=== PATIENT | female | born 1950 | race Caucasian/White ===

== ENCOUNTER 2017-01-28 09:16 | Outpatient (CLI) | payer OTHER ==
[2017-01-28] MEDS ORDERED: IOPAMIDOL-300 100 ML VIAL IVP ONE (10:45)
[2017-01-28] MEDS ORDERED: IOPAMIDOL-300 50 ML VIAL PO ONE (10:45)
== END 2017-01-28 09:17 | disposition home or self-care (01) ==
DX: K76.89 Other specified diseases of liver (principal); K21.9 Gastro-esophageal reflux disease without esophagitis; R10.9 Unspecified abdominal pain; R19.4 Change in bowel habit
CPT/HCPCS: 74177; Q9967

== ENCOUNTER 2017-08-06 10:36 | Outpatient (CLI) | payer OTHER ==
--- NOTE | 2017-08-07 12:41 | Mammography Report ---
DIGITAL SCREENING MAMMOGRAM: 08/06/2017 CLINICAL INDICATION: A 66-year-old for screening. COMPARISON: 03/2014, 11/2007 TECHNIQUE: Routine CC and MLO projections were obtained of the breasts. FINDINGS: The breasts demonstrate scattered fibroglandular densities bilaterally. Coarse, typically benign calcifications are present. No suspicious masses, clustered microcalcifications, or regions of architectural distortion are identified. IMPRESSION: BENIGN FINDINGS. RECOMMENDATION: Routine annual screening unless otherwise clinically indicated. BIRADS CATEGORY 2 - BENIGN FINDINGS. STANDARD QUALIFYING STATEMENTS 1. This examination was reviewed with the aid of Computer-Aided Detection (CAD). 2. A negative or benign imaging report should not delay biopsy if clinically suspicious findings are present. Consider surgical consultation if warranted. More than 5% of cancers are not identified by i maging. 3. Dense breasts may obscure an underlying neoplasm. JOB #: [id number] EXT JOB #:[id number]
== END 2017-08-06 10:37 | disposition home or self-care (01) ==
LOC: DI.S 10:36
PROVIDERS: ATTEND Physician Assistant
DX: Z12.31 Encounter for screening mammogram for malignant neoplasm of breast (principal)
CPT/HCPCS: 77067

== ENCOUNTER 2017-12-29 12:55 | Outpatient (CLI) | payer OTHER ==
--- NOTE | 2017-12-29 18:55 | XRAY Report ---
TWO VIEW CHEST: 12/29/2017 CLINICAL INDICATION: Cough. FINDINGS: Frontal and lateral views of the chest demonstrate a normal cardiac silhouette. The lungs are clear. No effusion or pneumothorax is present. IMPRESSION: NORMAL CHEST. TD: 12/29/2017 18:53
== END 2017-12-29 12:56 | disposition home or self-care (01) ==
LOC: DI.S 12:55
PROVIDERS: ATTEND Nurse Practitioner Family
DX: R05 Cough (principal)
CPT/HCPCS: 71046

== ENCOUNTER 2019-07-12 14:03 | Outpatient (CLI) | payer OTHER ==
--- NOTE | 2019-07-13 09:29 | Mammography Report ---
Reason: SELF REFERRING GREG, Z12.31 Procedure Date: 07/12/2019 Accession Number: [id number] / [id number] Procedure: MGS - Screening Mammo Dig Bilat CPT Code: FULL RESULT: EXAM: Screening Mammo Dig Bilat DATE: 07/12/2019 2:21 PM CLINICAL HISTORY: Routine screening TECHNIQUE: (B) - Bilateral CC and MLO views were obtained. COMPARISON: 08/06/2017, 03/14/2014, 11/19/2007 PARENCHYMAL PATTERN: (A) - The breasts demonstrate scattered fibroglandular densities bilaterally. FINDINGS: No significant interval change. There are no suspicious masses, calcifications, or areas of distortion. IMPRESSION: Negative examination. BI-RADS category 1. RECOMMENDATION: (ANNUAL) - Recommend routine annual screening mammography. BI-RADS CATEGORY: (1) - Negative. STANDARD QUALIFYING STATEMENTS: 1. This examination was not reviewed with the aid of Computer-Aided Detection (CAD). 2. A negative or benign imaging report should not preclude biopsy if clinically suspicious findings are present. 3. Dense breasts may obscure an underlying neoplasm. 4. This examination was reviewed without the aid of 3D breast imaging (tomosynthesis).
== END 2019-07-12 14:04 | disposition home or self-care (01) ==
LOC: DI.S 14:03
PROVIDERS: ATTEND Physician Assistant
DX: Z12.31 Encounter for screening mammogram for malignant neoplasm of breast (principal)
CPT/HCPCS: 77067

== ENCOUNTER 2021-12-10 13:44 | Outpatient (CLI) | payer MEDICARE ==
--- NOTE | 2021-12-11 09:48 | XRAY Report ---
PROCEDURE: Hand 2 View BILAT INDICATIONS: BILAT HAND PAIN TECHNIQUE: 2 views of each hand(s) acquired. COMPARISON: X-ray right hand 3 view, 01/03/2015. FINDINGS: Bones: No fractures or dislocations. No suspicious bony lesions. There is a small corticated ossic le adjacent to the ulnar steroid. There are osteoarthritic changes bilaterally, moderate at the right fifth proximal interphalangeal joint, and mild at multiple interphalangeal joints bilaterally. Soft tissues: No suspicious soft tissue calcifications. IMPRESSION: Osteoarthritis bilaterally. Reviewed by: Mode Edwards MD on 12/11/2021 9:47 AM PST Approved by: Mode Edwards MD on 12/11/2021 9:47 AM PST Station ID: [id number]
== END 2021-12-10 13:45 | disposition home or self-care (01) ==
LOC: DI.S 13:44
PROVIDERS: ATTEND Nurse Practitioner Family
DX: M19.042 Primary osteoarthritis, left hand (principal); M19.041 Primary osteoarthritis, right hand

== ENCOUNTER 2021-12-10 13:44 | Outpatient (CLI) | payer MEDICARE ==
--- NOTE | 2021-12-11 07:27 | Mammography Report ---
BILATERAL DIGITAL SCREENING MAMMOGRAM 3D/2D: 12/10/2021 CLINICAL: Routine screening. Family history of breast cancer. Comparison is made to exams dated: 07/12/2019 mammogram, 08/06/2017 mammogram, and 03/14/2014 mammogram - [facility]. There are scattered fibroglandular elements in both breasts. No significant masses, calcifications, or other findings are seen in either breast. There has been no significant interval change. IMPRESSION: NEGATIVE There is no mammographic evidence of malignancy. A 1 year screening mammogram is recommended. This exam was interpreted at Station ID: [id number]. NOTE: For mammograms, a report in lay terms will be sent to the patient. Approximately 15% of breast malignancies will not be visualized mammographically. In the management of a palpable breast mass, a negative mammogram must not discourage biopsy of a clinically suspicious lesion. Electronically Signed By: Lei Malloy M.D. [email or web address]/[email or web address]:12/10/2021 15:19:56 ACR BI-RADS Category 1: Negative 3341F PARENCHYMAL PATTERN: (A) - The breast(s) demonstrate(s) scattered fibroglandular densities. BI-RADS CATEGORY: (1) - 1 RECOMMENDATION: (ANNUAL) - Recommend routine annual screening mammography. [id number] 1 year screening LATERALITY: (B)
== END 2021-12-10 13:45 | disposition home or self-care (01) ==
LOC: DI.S 13:44
PROVIDERS: ATTEND Physician Assistant
DX: Z12.31 Encounter for screening mammogram for malignant neoplasm of breast (principal); Z80.3 Family history of malignant neoplasm of breast

== ENCOUNTER 2021-12-11 12:49 | Outpatient (CLI) | payer MEDICARE ==
--- NOTE | 2021-12-11 14:07 | DEXA Report ---
PROCEDURE: Dexa Spine and/or Hip INDICATIONS: POST MENOPAUSAL TECHNIQUE: Dual energy x-ray absorptiometry (DXA) was performed on a [employer]24 System. Regions measur ed are the AP Spine, femoral neck, and if needed forearm. COMPARISON: None. FINDINGS: Lumbar Spine: Bone Mineral Density 0.99 g/cm/cm,T score -1.6, osteopenia Left Hip: Bone Mineral Density 0.75 g/cm/cm,T score -2.1, osteopenia Impression: Osteopenia. Patients with diagnosis of osteoporosis or osteopenia should have regular bone mineral density assess ment. For those eligible for Medicare, routine testing is allowed once every 2 years. Testing frequ ency can be increased for patients who have rapidly progressing disease or for those who are receivin g medical therapy to restore bone mass. Reviewed by: Mark England MD on 12/11/2021 2:05 PM PST Approved by: Mark England MD on 12/11/2021 2:05 PM PST Station ID: [id number]
== END 2021-12-11 12:50 | disposition home or self-care (01) ==
LOC: DI 12:49
PROVIDERS: ATTEND Physician Assistant
DX: Z78.0 Asymptomatic menopausal state (principal); M85.89 Other specified disorders of bone density and structure, multiple sites

== ENCOUNTER 2022-12-02 09:23 | Outpatient (CLI) | payer MEDICARE ==
--- NOTE | 2022-12-02 10:46 | Ultrasound Report ---
PROCEDURE: Aorta Screening INDICATIONS: FAM HIST OF AAA TECHNIQUE: Real time scanning was performed of the aorta and iliac arteries, with image documentatio n. COMPARISON: Ultrasound aorta, 03/14/2014. CT abdomen and pelvis, 01/28/2017. FINDINGS: Mild atherosclerotic plaques are seen in abdominal aorta and iliac arteries. Aorta: Proximal aortic diameter measures 2.5 x 2.8 cm. Mid-aorta measures 1.8 x 1.8 cm. Distal aor tic diameter is 1.7 x 1 point cm. Iliac arteries: Right common iliac artery measures 1.1 x 1.0 cm. Left common iliac artery measures 1.1 x 1.0 cm. IMPRESSION: 1. Ectasia of proximal abdominal aorta. A follow-up ultrasound suggested in 5 years. 2. Atherosclerosis. Reviewed by: Mode Edwards MD on 12/02/2022 10:44 AM PST Approved by: Mode Edwards MD on 12/02/2022 10:44 AM PST Station ID: [id number]
== END 2022-12-02 09:24 | disposition home or self-care (01) ==
LOC: DI 09:23
PROVIDERS: ATTEND Nurse Practitioner Family
DX: Z13.6 Encounter for screening for cardiovascular disorders (principal); I77.811 Abdominal aortic ectasia; Z82.49 Family history of ischemic heart disease and other diseases of the circulatory system; I70.0 Atherosclerosis of aorta

== ENCOUNTER 2024-03-02 13:58 | Outpatient (CLI) | payer MEDICARE ==
--- NOTE | 2024-03-03 10:58 | Mammography Report ---
BILATERAL DIGITAL SCREENING MAMMOGRAM 3D/2D: 03/02/2024 CLINICAL: Routine screening. Family history of breast cancer. Comparison is made to exams dated: 12/10/2021 mammogram and 07/12/2019 mammogram - [facility]. There are scattered areas of fibroglandular density in both breasts (category b / 25%-50% glandular t issue). No significant masses, calcifications, or other findings are seen in either breast. There has been no significant interval change. IMPRESSION: NEGATIVE There is no mammographic evidence of malignancy. A 1 year screening mammogram is recommended. Based on the Tyrer Cuzick model (a risk assessment model) the patient's lifetime risk is 6.1% and her 10 year risk is 4.2%. According to the ACR, ACS, and NCCN guidelines, an annual breast MRI exam alicia g with mammogram is recommended if the patient's lifetime risk is 20% or greater. This exam was interpreted at Station ID: [id number]. NOTE: For mammograms, a report in lay terms will be sent to the patient. Approximately 15% of breast malignancies will not be visualized mammographically. In the management of a palpable breast mass, a negative mammogram must not discourage biopsy of a clinically suspicious lesion. Electronically Signed By: Ronna girard/jorge:03/02/2024 16:38:39 letter sent: No_Letter ACR BI-RADS Category 1: Negative 3341F PARENCHYMAL PATTERN: (A) - The breast(s) demonstrate(s) scattered fibroglandular densities. BI-RADS CATEGORY: (1) - 1 RECOMMENDATION: (ANNUAL) - Recommend routine annual screening mammography. [id number] 1 year screening LATERALITY: (B)
== END 2024-03-02 13:59 | disposition home or self-care (01) ==
LOC: DI.S 13:58
PROVIDERS: ATTEND Nurse Practitioner Family
DX: Z12.31 Encounter for screening mammogram for malignant neoplasm of breast (principal); R92.323 Mammographic fibroglandular density, bilateral breasts; Z80.3 Family history of malignant neoplasm of breast

== ENCOUNTER 2024-04-14 12:18 | Outpatient (CLI) | payer MEDICARE ==
--- NOTE | 2024-04-14 16:52 | DEXA Report ---
PROCEDURE: Dexa Spine and/or Hip INDICATIONS: OSTEOPENIA TECHNIQUE: Dual energy x-ray absorptiometry (DXA) was performed on a [employer] System. Regions measur ed are the AP Spine, femoral neck, and if needed forearm. COMPARISON: December 11, 2021 FINDINGS: Lumbar Spine: Bone Mineral Density: 0.93 g/cm/cm,T score: -2.1. Previously -1.6 Left Femoral Neck: Bone Mineral Density: 0.74 g/cm/cm, T score: -2.1, previously -1.8. Left Hip: Bone Mineral Density: 0.72 g/cm/cm,T score: -2.3. Previously -2.1 (T score greater or equal to -1.0: NORMAL) (T score from -1.1 to -2.4: OSTEOPENIA) (T score less than or equal to -2.5 to: OSTEOPOROSIS) Impression: By WHO criteria, this patient has low bone density (osteopenia). T-scores have slightly decreased com pared to prior. Patients with diagnosis of osteoporosis or osteopenia should have regular bone mineral density assess ment. For those eligible for Medicare, routine testing is allowed once every 2 years. Testing frequ ency can be increased for patients who have rapidly progressing disease or for those who are receivin g medical therapy to restore bone mass. Reviewed by: Andrew Taveras MD on 04/14/2024 4:50 PM PDT Approved by: Andrew Taveras MD on 04/14/2024 4:50 PM PDT Station ID: [id number]
== END 2024-04-14 12:19 | disposition home or self-care (01) ==
LOC: DI 12:18
PROVIDERS: ATTEND Nurse Practitioner Family
DX: M85.89 Other specified disorders of bone density and structure, multiple sites (principal)